=== PATIENT | female | born 1935 | race Caucasian/White ===

== ENCOUNTER → 2016-07-18 | Outpatient (CLI) | payer MEDICARE ==
[~2016-07-18] MED LIST: AC325T PO; ASPI-894 PO; CALC-140 PO; CALC600T12 PO; CHOL200025 PO; CYAN10006 PO; DOCU100C8 PO; DOXY100C49 PO; FOLI-74 PO; LD5PT TOP; LEVO250T11 PO; METR375C PO; MULT-301 PO; NAPR220C11 PO; OMEG500C PO; OMEP20TA33 PO; OMG1KC; OXYC1TAB87 PO; POLY17PO2 PO; PRD50T PO; RED600CA2 PO; VIT400TA2; VIT52OIL3 PO
--- NOTE | 2016-07-18 10:50 | Diagnostic Imaging Report ---
INDICATION: Pelvic mass. TECHNIQUE: CT of the abdomen and pelvis obtained with pre-and post IV contrast images. COMPARISON: There is no previous CT of this region for comparison. Comparison made to prior ultrasound of 06/29/2016. FINDINGS: The visualized portions of the lung bases were unremarkable. There is no pleural fluid collection or free intraperitoneal air. Patient has had previous kyphoplasty at L1. The liver shows no focal lesion. Gallbladder is absent. Spleen, adrenals, and pancreas are normal in appearance. The kidneys bilaterally are unremarkable. There is no retroperitoneal mass or adenopathy. There is no ascites or abnormal fluid collection. There is atherosclerotic change of the aorta without evidence of aneurysm. There is no pelvic mass or free fluid. 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 The septated cystic lesion in the right adnexa visualized in the ultrasound of 06/29/2016 is not apparent on this study. There are old healed fractures of the right inferior and superior pubic rami. There is some ill-defined fluid within the pectineus muscle on the right side. IMPRESSION: No abdominal mass. The septated pelvic lesion visualized on the ultrasound of 06/29/2016 is not apparent on this study. There is some ill-defined fluid in the right pectineus muscle. There are old fractures of the right inferior and superior pubic rami. There is no free fluid or abscess. Dictated by: Dictated on workstation # [id number]
== END ==
LOC: RAD 08:39
PROVIDERS: ATTEND Obstetrics & Gynecology
DX: R10.2 Pelvic and perineal pain (principal); N83.291 Other ovarian cyst, right side; R19.00 Intra-abdominal and pelvic swelling, mass and lump, unspecified site
CPT/HCPCS: 74178; Q9967

== ENCOUNTER → 2016-07-28 | Outpatient (CLI) | payer MEDICARE ==
--- NOTE | 2016-07-28 14:18 | Diagnostic Imaging Report ---
PROCEDURE: MRI pelvis with and without contrast. TECHNIQUE: Multiplanar, multisequence MRI of the pelvis was performed with and without contrast. INDICATION: Muscle mass. COMPARISON: CT dated 08/07/2016. FINDINGS: Bone marrow signal intensity is unremarkable without significant marrow edema. The bilateral femoral heads maintain their normal contour without evidence of avascular necrosis. Insertion site of the hamstrings is unremarkable. A 4.0 x 2.7 x 2.6 cm focal fluid collection is identified within the right pectineus muscle. This corresponds to the abnormality noted on prior CT. This demonstrates T2 hyperintense signal. Minimal thin peripheral enhancement is present. No definite enhancing solid component is seen. Additionally, minimal fluid is identified medial to the right hip joint as noted on series 105 image 21. No significant hip joint effusion. No muscular edema or atrophy. The urinary bladder is unremarkable. The uterus is not visualized, likely surgically absent. No adenopathy is seen. IMPRESSION: Focal fluid/T2 hyperintense lesion within the right pectineus muscle. Exact etiology is uncertain, though no definite suspicious features to this cystic lesion are identified. In particular, no definite solid component or adjacent reactive changes. Findings could relate to an intramuscular hematoma. Sequelae of prior partial muscle tear is an additional consideration. Decompression of a paralabral cyst is an additional consideration given the additional small fluid adjacent to the right hip joint as described above. Recommend continued clinical followup. Dictated by: Dictated on workstation # [id number]
== END ==
LOC: RAD 11:56
PROVIDERS: ATTEND Surgery
DX: R29.898 Other symptoms and signs involving the musculoskeletal system (principal)
CPT/HCPCS: 72197; A9579